=== PATIENT | female | born 1950 | race Caucasian/White ===

== ENCOUNTER 2016-11-19 07:35 | Day surgery (SDC) | payer BC ==
--- NOTE | ~2016-11-19 | EGD ---
EGD REPORT [facility] [address] [place] [address] NAME: NAHUN SINGH : [birth year] STATUS : [facility]#: [id number] AGE: 66 ADM/REG DATE : 11/19/16 MR#: [id number] REPORT SERV DATE: 11/19/16 DICTATED BY: SYED MARS DATE: 11/19/16 REPORT STATUS : Draft TRANSCRIBED BY: [employer] DATE: 11/19/16 [facility] Center Patient Name: Nahun Singh Date of : 1950 Attending MD: SYED MARS, Procedure Date No Time: 11/19/2016 Procedure: Upper GI endoscopy Indications: Iron deficiency anemia Medicines: Monitored Anesthesia Care Complications: No immediate complications. Estimated blood loss: None. Procedure: Pre-Anesthesia Assessment: - ASA Grade Assessment: III - A patient with severe systemic disease. After obtaining informed consent, the endoscope was passed under direct vision. Throughout the procedure, the patient's blood pressure, pulse, and oxygen saturations were monitored continuously. The PCF H190L [id number] was introduced through the mouth, and advanced to the second part of duodenum. The upper GI endoscopy was accomplished without difficulty. The patient tolerated the procedure well. Findings: The esophagus was normal. Scattered moderate inflammation characterized by erosions was found in the gastric antrum. Biopsy with a cold forceps was performed for histology. Verification of patient identification for the specimen was done. Estimated blood loss was minimal. The exam of the stomach was otherwise normal. The cardia and gastric fundus were normal on retroflexion. The examined duodenum was normal. Impression: - Normal esophagus. - Gastritis. Biopsied. - Normal examined duodenum. Recommendation: - Return to previous diet. - Continue present medications. - Await pathology results. Procedure Code(s): --- Professional --- 10989, Esophagogastroduodenoscopy, flexible, transoral; with biopsy, single or multiple Diagnosis Code(s): --- Professional --- EGD REPORT [facility] [address] [place] [address] [place] [address] NAME: NAHUN SINGH : [birth year] [place]US : [place] [facility] [place] [id number] AGE: 66 ADM/REG DATE : 11/19/16 MR#: [id number] REPORT SERV DATE: 11/19/16 DICTATED BY: SYED MARS DATE: 11/19/16 REPORT STATUS : Draft TRANSCRIBED BY: [employer] DATE: 11/19/16 K29.70, Gastritis, unspecified, without bleeding D50.9, Iron deficiency anemia, unspecified CPT copyright 2013 [employer]. All rights reserved. The codes documented in this report are preliminary and upon ruling machine feeder review may be revised to meet current compliance requirements. SYDE MARS, 11/19/2016 10:11 AM Number of Addenda: 0 Note Initiated On: 11/19/2016 9:17 AM Scope Withdrawal Time 0 hours 0 minutes 0 seconds [address] [facility] [place] [address]
--- NOTE | ~2016-11-19 | EGD ---
EGD REPORT [facility] [address] [place] [place] [address] NAME: NAHUN RUEDA : [birth year] STATUS : REG [facility]#: [id number] AGE: 66 ADM/REG DATE : 11/19/16 MR#: [id number] REPORT SERV DATE: 11/19/16 DICTATED BY: SYED MARS DATE: 11/19/16 REPORT STATUS : Draft TRANSCRIBED BY: [employer] DATE: 11/19/16 Endoscopy Center Patient Name: Nahun Rueda Date of : 1950 Attending MD: SYED MARS, Procedure Date No Time: 11/19/2016 Procedure: Colonoscopy Indications: Iron deficiency anemia Referring MD: LIVIA BARBER MD Medicines: Monitored Anesthesia Care Complications: No immediate complications. Estimated blood loss: None. Procedure: Pre-Anesthesia Assessment: - ASA Grade Assessment: III - A patient with severe systemic disease. After I obtained informed consent, the scope was passed under direct vision. Throughout the procedure, the patient's blood pressure, pulse, and oxygen saturations were monitored continuously. The PCF H190L [id number] was introduced through the anus and advanced to the cecum, identified by appendiceal orifice and ileocecal valve. The colonoscopy was performed without difficulty. The patient tolerated the procedure well. The quality of the bowel preparation was fair. Findings: The perianal and digital rectal examinations were normal. Internal hemorrhoids were found during retroflexion and were Grade I (internal hemorrhoids that do not prolapse). A moderate amount of stool was found in the entire colon. As much of this was aspirated as possible. The exam was otherwise without abnormality on direct and retroflexion views. Impression: - Internal hemorrhoids. - Stool in the entire examined colon. - The examination was otherwise normal on direct and retroflexion views. Recommendation: - Patient has a contact number available for emergencies. The signs and symptoms of potential delayed complications were discussed with the patient. Return to normal activities tomorrow. Written discharge instructions were provided to the patient. - Return to previous diet. - Continue present medications. EGD REPORT [facility] [address] [place] [address] [place]. [address] NAME: NAHUN RUEDA : [birth year] [place]US [place] [facility] [place] [id number] AGE: 66 ADM/REG DATE : 11/19/16 MR#: [id number] REPORT SERV DATE: 11/19/16 DICTATED BY: SYED MARS DATE: 11/19/16 REPORT STATUS : Draft TRANSCRIBED BY: [employer] DATE: 11/19/16 - Return to GI office in 4 weeks. Procedure Code(s): --- Professional --- 28369, Colonoscopy, flexible, proximal to splenic flexure; diagnostic, with or without collection of specimen(s) by brushing or washing, with or without colon decompression (separate procedure) Diagnosis Code(s): --- Professional --- K64.0, First degree hemorrhoids D50.9, Iron deficiency anemia, unspecified CPT copyright 2013 [employer]. All rights reserved. The codes documented in this report are preliminary and upon talent development specialist review may be revised to meet current compliance requirements. SYED MARS, 11/19/2016 10:13 AM Number of Addenda: 0 Note Initiated On: 11/19/2016 9:13 AM Scope Withdrawal Time 0 hours 12 minutes [address] seconds [address] [place] [address]
[~2016-11-19 07:35] MED LIST: ATARAX50B PO; BUSPAR15 M1 PO; CYMBALTA60 PO; DEPLIN; GENTLESORB IRON PO; GLUCPH PO; HIPREX1 GM PO; HYDROCHLOROT50 MG; LANTUSCART SC; LATUDA120 MG PO; LEVOTHYROXIN75 MCG PO; LISINOPRIL40 MG PO; METHATAB10 PO; MULTIPLE VIT PO; NEUR800 PO; PERCOCET 10/3251 TAB PO; PERCOCET1 TA4 PO; PRILOSEC OTC20 MG PO; PRISTIQ100 MG PO; PROVIGIL2 PO; QVAR80 MCG INH; REMERON45 MG PO; SPIRO50 PO
[2017-03-15] MEDS ORDERED: ALVESCO INHALER INH (13:06)
[2017-03-15] MEDS ORDERED: B COMPLETE PO (13:07)
[2017-03-15] MEDS ORDERED: MAGNESIUM OTC PO (13:09)
[2017-03-15] MEDS ORDERED: LINZESS 290 M290 MCG PO (13:10)
[2017-03-23] MEDS ORDERED: ELIQUIS 2.5 MG2.5 MG PO (12:30)
== END 2016-11-19 23:59 | disposition home or self-care (01) ==
LOC: DMU 07:35
PROVIDERS: Internal Medicine Gastroenterology
PROC: 0DB68ZX Excision of Stomach, Via Natural or Artificial Opening Endoscopic, Diagnostic (ICD-10-PCS; principal; 2016-11-19 10:00)
PROC: 0DJD8ZZ Inspection of Lower Intestinal Tract, Via Natural or Artificial Opening Endoscopic (ICD-10-PCS; 2016-11-19 10:00)
DX: K64.0 First degree hemorrhoids (principal); K29.50 Unspecified chronic gastritis without bleeding; D50.9 Iron deficiency anemia, unspecified; I10 Essential (primary) hypertension; J44.9 Chronic obstructive pulmonary disease, unspecified; G47.33 Obstructive sleep apnea (adult) (pediatric); K21.9 Gastro-esophageal reflux disease without esophagitis; E03.9 Hypothyroidism, unspecified; E11.8 Type 2 diabetes mellitus with unspecified complications; F41.9 Anxiety disorder, unspecified; M19.90 Unspecified osteoarthritis, unspecified site; F32.9 Major depressive disorder, single episode, unspecified; Z87.891 Personal history of nicotine dependence; Z88.2 Allergy status to sulfonamides; Z79.899 Other long term (current) drug therapy; Z90.710 Acquired absence of both cervix and uterus; Z96.651 Presence of right artificial knee joint; Z98.890 Other specified postprocedural states
CPT/HCPCS: 82962; 88305; 88342; 94640